=== PATIENT | male | born 1995 | race Hispanic/Latino ===

== ENCOUNTER 2020-08-22 12:27 | Outpatient (CLI) | payer BC ==
--- NOTE | 2020-08-22 15:19 | RAD ---
LUMBAR SPINE SERIES TWO VIEWS: 08/22/20 HISTORY: Acute low back pain. Vertebral bodies are normal in height. Pseudarthrosis of the left L5 transverse process at the sacrum is noted. Pedicles are intact. No spondylolisthesis. IMPRESSION: Pseudarthrosis of the left L5 transverse process with the sacrum. POS: NAHEED
--- NOTE | 2020-08-22 15:42 | RAD ---
PA CHEST AND LEFT RIBS FOUR VIEWS: 08/22/20 HISTORY: Left sided pain. Heart size and mediastinum are within normal limits. The lungs are clear of infiltrates. No rib frac ture seen. No lytic or blastic bony change. IMPRESSION: No acute findings. POS: NAHEED
== END 2020-08-22 12:28 | disposition home or self-care (01) ==
LOC: BICRAD 12:27
PROVIDERS: ATTEND Family Medicine
DX: M54.5 Low back pain (principal); R07.9 Chest pain, unspecified; M96.0 Pseudarthrosis after fusion or arthrodesis
CPT/HCPCS: 72100